=== PATIENT | female | born 1955 ===

== ENCOUNTER 2020-11-30 22:35 | Outpatient (REF) | payer MEDICARE, OTHER, SELFPAY ==
[2020-11-30 22:13] LABS: Abs Immature Grans 0.01 10^3/uL (0.0-0.06); Absolute Basophil Count 0.04 10^3/uL (0.0-0.2); Absolute Eosinophil Count 0.16 10^3/uL (0.0-0.7); Absolute Lymphocyte Count 2.06 10^3/uL (1.2-3.4); Absolute Monocyte Count 0.32 10^3/uL (0.1-0.8); Absolute Neutrophil Count 3.18 10^3/uL (1.2-6.7); Basophils % 0.7; Eosinophils % 2.8; HCT 38.6 % (36.0-46.0); HGB 12.8 g/dL (11.2-15.7); Immature Grans % 0.2; Lymphocytes % 35.7; MCH 29.6 pg (27.0-33.0); MCHC 33.2 % (32.0-36.0); MCV 89.1 fL (80-95); MPV 11.3 fL (8.0-11.0); Monocytes % 5.5; Neutrophils % 55.1; Nucleated RBC 0 %; Platelet Count 286 10^3/uL (130-400); RBC 4.33 10^6/uL (3.93-5.22); RDW 13.1 % (11.7-14.6); WBC 5.77 10^3/uL (4.4-10.8)
[2020-11-30 22:20] LABS: C-Reactive Protein < 0.05 mg/dL (0.0-0.3)
== END 2020-11-30 22:36 | disposition home or self-care (01) ==
LOC: NCHCN 22:35
PROVIDERS: PCP Family Medicine; Visit Provider Family Medicine
DX: K52.9 Noninfective gastroenteritis and colitis, unspecified (principal)
CPT/HCPCS: 85025; 86140